=== PATIENT | female | born 1980 | race Caucasian/White ===

== ENCOUNTER 2018-02-11 07:33 | Inpatient (IN) | payer BC ==
[~2018-02-11] VITALS: Ht 175.3 cm; Wt 89.4 kg
[2018-02-11] MEDS ORDERED: LACTATED RINGERS 1000ML 1,000 ML IV PRN (08:04)
[2018-02-11 08:14] LABS: BILIRUBIN,URINE NEGATIVE (NEGATIVE); COLOR,URINE YELLOW (YELLOW); GLUCOSE, URINE (UA) NEGATIVE (NEGATIVE); HEMATOCRIT 37.6 % (36-48); KETONES,URINE NEGATIVE (NEGATIVE); LEUKOCYTE ESTERASE ,URINE MODERATE (NEGATIVE); MEAN CORPUSCULAR HEMOGLOBIN 31.3 pg (27.0-33.0); MEAN CORPUSCULAR HGB CONC 34.4 g/dL (32.0-36.0); NITRATE,URINE NEGATIVE (NEGATIVE); OCCULT BLOOD,URINE LARGE (NEGATIVE); PH,URINE 8.5 (5.0-8.0); PLATELET COUNT (AUTO) 125 K/uL (130-400); PROTEIN,URINE NEGATIVE (NEGATIVE); RED BLOOD CELL COUNT(AUTO) 4.13 MIL/uL (4.00-5.50); RED CELL DISTRIBUTION WIDTH 13.2 % (11.0-15.5); UROBILINOGEN,URINE 0.2 mg/dL (0.2-1.0); WHITE BLOOD COUNT (AUTO) 12.9 K/uL (4.8-10.8)
[2018-02-11] MEDS ORDERED: EPHEDRINE SULFATE 50 MG/ML AMPULE IVP PRN (08:15)
[2018-02-11] MEDS ORDERED: LACTATED RINGERS 500 ML 500 ML IV PRN (08:15)
[2018-02-11] MEDS ORDERED: OXYTOCIN-LR 20 UNITS/1000 ML 1,000 ML IV SCH (08:15)
[2018-02-11] MEDS ORDERED: NALOXONE HCL 0.4 MG/1 ML ML IV PRN (08:15)
[2018-02-11 08:16] LABS: APPEARANCE,URINE SLIGHTLY CLOUDY (CLEAR)
[2018-02-11 08:24] LABS: BACTERIA,URINE Few /HPF (None Seen); SQUAMOUS EPITHELIAL CELL,UR Few /HPF (0-2)
[2018-02-11 08:25] LABS: YEAST,URINE BUDDING Few /HPF (None Seen)
[2018-02-11] MEDS ORDERED: OXYTOCIN 10 USP UNITS/ML ONE ×2 (08:58→11:13)
[2018-02-11] MEDS ORDERED: BENZOCAINE/LANOLIN/ALOE VERA 60 ML AEROSOL TP PRN (10:00)
[2018-02-11] MEDS ORDERED: ACETAMINOPHEN 325 MG TAB PO PRN (10:00)
[2018-02-11] MEDS ORDERED: LANOLIN 30GM OINTMENT TP PRN (10:00)
[2018-02-11] MEDS ORDERED: MEASLES/MUMPS/RUBELLA VACCINE, LIVE 0.5 ML/VIAL SQ PRN (10:00)
[2018-02-11] MEDS ORDERED: HYDROCODONE/ACETAMINOPHEN 5/325 MG TAB PO PRN (10:00)
[2018-02-11] MEDS ORDERED: DIPH,PERTUSS(ACELL),TET VAC/PF 0.5 ML VIAL IM PRN (10:00)
[2018-02-11] MEDS ORDERED: WITCH HAZEL 1 PAD TP PRN (10:00)
[2018-02-11] MEDS: IBUPROFEN 600 MG TABLET PO PRN ×2 (11:22→17:09)
[2018-02-11 11:38] VITALS: BP 106/61
[2018-02-11 15:56] VITALS: BP 124/75
[2018-02-11 20:27] VITALS: BP 121/66
[2018-02-11] MEDS: DOCUSATE SODIUM 100 MG CAP PO SCH (21:11)
[2018-02-12] VITALS (7 sets, daily range): BP systolic 97–127; BP diastolic 50–71
[2018-02-12] MEDS: IBUPROFEN 600 MG TABLET PO PRN ×2 (07:39→17:40)
[2018-02-12 08:21] LABS: HEPATITIS Bs ANTIGEN SCREEN P Negative (Negative)
[2018-02-12] MEDS: DOCUSATE SODIUM 100 MG CAP PO SCH ×2 (09:53→21:03)
[2018-02-12 14:29] LABS: RAPID PLASMA REAGIN NONREACTIVE (NONREACTIVE)
[2018-02-13 03:35] VITALS: BP 107/60
[2018-02-13] MEDS: IBUPROFEN 600 MG TABLET PO PRN (05:44)
[2018-02-13 07:44] VITALS: BP 117/70
[2018-02-13] MEDS: DOCUSATE SODIUM 100 MG CAP PO SCH (08:27)
[2018-02-13 11:44] VITALS: BP 120/72
== END 2018-02-13 12:00 | disposition home or self-care (01) | DRG 775 ==
LOC: LDH 07:33 → OBSVTOIN 07:33 → WSH 11:35
PROVIDERS: ADMIT Obstetrics & Gynecology; ATTEND Obstetrics & Gynecology
PROC: 10907ZC Drainage of Amniotic Fluid, Therapeutic from Products of Conception, Via Natural or Artificial Opening (ICD-10-PCS; principal; 2018-02-11)
PROC: 10E0XZZ Delivery of Products of Conception, External Approach (ICD-10-PCS; 2018-02-11)
PROC: 3E0R3BZ Introduction of Anesthetic Agent into Spinal Canal, Percutaneous Approach (ICD-10-PCS; 2018-02-11)
PROC: 00HU33Z Insertion of Infusion Device into Spinal Canal, Percutaneous Approach (ICD-10-PCS; 2018-02-11)
PROC: 30233S1 Transfusion of Nonautologous Globulin into Peripheral Vein, Percutaneous Approach (ICD-10-PCS; 2018-02-11)
PROC: 3E0234Z Introduction of Serum, Toxoid and Vaccine into Muscle, Percutaneous Approach (ICD-10-PCS; 2018-02-11)
PROC: 3E0134Z Introduction of Serum, Toxoid and Vaccine into Subcutaneous Tissue, Percutaneous Approach (ICD-10-PCS; 2018-02-11)
DX: O69.81X0 Labor and delivery complicated by cord around neck, without compression, not applicable or unspecified (principal); Z23 Encounter for immunization; Z37.0 Single live birth; Z3A.38 38 weeks gestation of pregnancy
CPT/HCPCS: 36415; 81001; 83033; 85027; 86592; 86701; 86850; 86900; 86901; 87340; 87390; 90715; A4314; A4606; J2590; J2791; J7120

== ENCOUNTER → 2019-06-24 | Outpatient (CLI) | payer BC | END | disposition home or self-care (01) | LOC: RAH 10:30 | PROVIDERS: ATTEND Obstetrics & Gynecology | DX: Z12.31 Encounter for screening mammogram for malignant neoplasm of breast (principal); Z80.3 Family history of malignant neoplasm of breast | CPT/HCPCS: 77062; 77063; 77067 ==